=== PATIENT | female | born 1935 | race Caucasian/White ===

== ENCOUNTER 2018-04-03 05:35 | Emergency (ER) | payer OTHER, BC ==
[2018-04-03] MEDS ORDERED: FLUORESCEIN SODIUM 0.6 MG/WRAP ONE (06:28)
[2018-04-03] MEDS ORDERED: TETRACAINE HCL 0.5% 2ML OPTH ONE (06:28)
[2018-04-03 06:30] LABS: Urine RBC TNTC /HPF (NONE SEEN)
[2018-04-03 06:31] LABS: Urine Bacteria <20 /HPF (<20); Urine Culture Reflex Order NOT NEEDED
--- NOTE | 2018-04-03 07:12 | ER ---
Nurse's Notes [facility] Name: Africa Pope Age: 82 yrs Sex: Female : 1935 Arrival Date: 04/03/2018 Time: 05:37 Bed 24 Private MD: Roberto Zafar V Diagnosis: Urinary tract infection, site not specified-with hematuria;Conjunctival hemorrhage, left eye Presentation: 04/03 05:55 Presenting complaint: Patient states: states she had blood on urine that started when wh she woke up a couple of hours ago and a red eye that started yesterday. Denies fever, nausea,vomiting or pain. Transition of care: patient was not received from another setting of care. Onset of symptoms was April 03, 2018. Risk Assessment: Do you want to hurt yourself or someone else? Patient reports no desire to harm self or others. Initial Sepsis Screen: Does the patient meet any 2 criteria? No. Patient's initial sepsis screen is negative. Does the patient have a suspected source of infection? Yes: Dysuria/Frequency/Urgency/UTI. Care prior to arrival: None. 05:55 Method Of Arrival: Ambulatory 05:55 Acuity: LENORE 4 Triage Assessment: 06:02 General: Appears in no apparent distress. comfortable. Pain: Denies pain. 06:03 General: Behavior is calm, cooperative, appropriate for age. Historical: - Allergies: 06:01 Codeine; 06:01 Tetanus Vaccines \T\ Toxoid; - Home Meds: 06:01 Propranolol Oral [Active]; losartan oral oral [Active]; amlodipine oral [Active]; - PMHx: 06:01 Hypertension; - PSHx: 06:01 Hysterectomy; - Immunization history:: Adult Immunizations up to date. - Social history:: Smoking status: Patient/guardian denies using tobacco. - Ebola Screening: : Patient negative for fever greater than or equal to 101.5 degrees Fahrenheit, and additional compatible Ebola Virus Disease symptoms. Screenin:02 Abuse screen: Denies threats or abuse. Denies injuries from another. Nutritional screening: No deficits noted. Tuberculosis screening: No symptoms or risk factors identified. Fall Risk None identified. Assessment: 06:24 General: Appears in no apparent distress. comfortable, Behavior is calm, cooperative, appropriate for age. Pain: Denies pain. Neuro: Level of Consciousness is awake, alert, obeys commands, Oriented to person, place, time, situation. Cardiovascular: Denies chest pain, Capillary refill < 3 seconds. Respiratory: Airway is patent Respiratory effort is even, unlabored, Respiratory pattern is regular, symmetrical. GI: Abdomen is flat, non-distended, Abd is soft and non tender X 4 quads. : Urine is blood tinged, Reports hematuria that started this morning Denies pain. EENT: Eyes left eye reddened. Derm: Skin is intact, is healthy with good turgor, Skin is pink, warm \T\ dry. normal. Musculoskeletal: Range of motion: intact in all extremities. Vital Signs: 05:58 BP 166 / 56; Pulse 84; Resp 17; Temp 97.7; Pulse Ox 99% on R/A; ED Course: 05:37 Patient arrived in ED. es 05:37 Roberto Zafar MD is Private Physician. 05:54 Víctor Reyes is Primary Nurse. 05:58 Triage completed. 06:01 Magdaleno Cotton NP is PHCP. pm1 06:01 Ashish Nixon MD is Attending Physician. pm1 06:03 Arm band placed on right wrist. 06:03 Patient has correct armband on for positive identification. Bed in low position. Call light in reach. Side rails up X 1. Pulse ox on. NIBP on. Administered Medications: 06:33 Drug: Tetracaine Drops 0.5 % 1 drops {Note: Administered by Magdaleno Cotton NP.} Route: Ophthalmic; Site: left eye; 07:32 Drug: Rocephin (cefTRIAXone) 1 grams Route: IM; Site: right gluteus; ph Outcome: 07:11 Discharge ordered by . pm1 07:57 Patient left the ED. ph Addendum: 04/07/2018 16:26 Addendum: Culture Results: Positive urine culture. Phone call Attempt #1 Patient s s notified of urine culture report, reports that she feels fine other than her normal urgency. Signatures: Milagro Curiel Shelby, RN RN Priya Chung RN RN Magdaleno Cotton NP [employer] pm1 Víctor Reyes
--- NOTE | 2018-04-03 07:12 | EDPHYS ---
Physician Documentation [facility] Name: Africa Pope Age: 82 yrs Sex: Female : 1935 Arrival Date: 04/03/2018 Time: 05:37 Bed 24 Private MD: Roberto Zafar V ED Physician Ashish Nixon HPI: 04/03 06:32 This 82 yrs old Female presents to ER via Ambulatory with complaints of pm1 hematuria, and left eye problem. 06:32 The patient presents with urinary symptoms, burning with urination, frequency, small pm1 quantity. Onset: The symptoms/episode began/occurred 3 day(s) ago. Modifying factors: The symptoms are alleviated by nothing, the symptoms are aggravated by urinating. Associated signs and symptoms: Pertinent negatives: diarrhea, fever, nausea, vomiting, abdominal pain. flank pain. Severity of symptoms: in the emergency department the symptoms are actually worse. Patient with burning with urination, frequency, and small quantity of urine with frequency for the past 2-3 days. This morning she had blood in her urine. Patient without any abdominal pain, back pain, or fever. Patient reports left eye redness without pain, change in vision, foreign body sensation, matting or discharge. She rubbed her eye a few days ago and is uncertain if contributory . Historical: - Allergies: 06:01 Codeine; 06:01 Tetanus Vaccines \T\ Toxoid; - Home Meds: 06:01 Propranolol Oral [Active]; losartan oral oral [Active]; amlodipine oral [Active]; - PMHx: 06:01 Hypertension; - PSHx: 06:01 Hysterectomy; - Immunization history:: Adult Immunizations up to date. - Social history:: Smoking status: Patient/guardian denies using tobacco. - Ebola Screening: : Patient negative for fever greater than or equal to 101.5 degrees Fahrenheit, and additional compatible Ebola Virus Disease symptoms. ROS: 06:32 Positive for urinary symptoms, urinary frequency, burning with urination, Negative pm1 for flank pain. 06:32 Constitutional: Negative for fever, chills, and weight loss. 06:32 ENT: Negative for injury, pain, and discharge, Neck: Negative for injury, pain, and swelling, Cardiovascular: Negative for chest pain, palpitations, and edema, Respiratory: Negative for shortness of breath, cough, wheezing, and pleuritic chest pain, Abdomen/GI: Negative for abdominal pain, nausea, vomiting, diarrhea, and constipation, Back: Negative for injury and pain, MS/Extremity: Negative for injury and deformity, Skin: Negative for injury, rash, and discoloration. 06:32 Neuro: Negative for headache, weakness, numbness, tingling, and seizure. 06:32 Eyes: Positive for redness, of the left eye, Negative for discharge, itching, matting, pain, photophobia, swelling, tearing, vision loss, visual disturbance. Exam: 06:32 Constitutional: This is a well developed, well nourished patient who is awake, alert, pm1 and in no acute distress. Head/Face: Normocephalic, atraumatic. ENT: Nares patent. No nasal discharge, no septal abnormalities noted. Tympanic membranes are normal and external auditory canals are clear. Oropharynx with no redness, swelling, or masses, exudates, or evidence of obstruction, uvula midline. Mucous membranes moist. Neck: Trachea midline, no thyromegaly or masses palpated, and no cervical lymphadenopathy. Supple, full range of motion without nuchal rigidity, or vertebral point tenderness. No Meningismus. Chest/axilla: Normal chest wall appearance and motion. Nontender with no deformity. No lesions are appreciated. Cardiovascular: Regular rate and rhythm with a normal S1 and S2. No gallops, murmurs, or rubs. Normal PMI, no JVD. No pulse deficits. Respiratory: Lungs have equal breath sounds bilaterally, clear to auscultation and percussion. No rales, rhonchi or wheezes noted. No increased work of breathing, no retractions or nasal flaring. Abdomen/GI: Soft, non-tender, with normal bowel sounds. No distension or tympany. No guarding or rebound. No evidence of tenderness throughout. Back: No spinal tenderness. No costovertebral tenderness. Full range of motion. Skin: Warm, dry with normal turgor. Normal color with no rashes, no lesions, and no evidence of cellulitis. MS/ Extremity: Pulses equal, no cyanosis. Neurovascular intact. Full, normal range of motion. 06:32 Eyes: Periorbital structures: appear normal, no abrasion, no cellulitis, no contusion, no ecchymosis, no erythema, no laceration, no swelling, Pupils: no acute changes, normal size, normal reaction to light, Extraocular movements: intact throughout, Conjunctiva: subconjunctival hemorrhage(s), seen in the left eye, Corneas: abrasion, is not appreciated, on the left, foreign body, is not appreciated, a fluorescein strip employed to appreciate the findings, Sclera: no appreciated abnormality, Anterior chamber: no acute changes, Lids and lashes: appear normal, bilaterally. 06:32 Neuro: Orientation: is normal, Mentation: is normal, Motor: moves all fours. Vital Signs: 05:58 BP 166 / 56; Pulse 84; Resp 17; Temp 97.7; Pulse Ox 99% on R/A; wh MDM: 06:02 Patient medically screened. pm1 06:33 Data reviewed: vital signs. Data interpreted: Pulse oximetry: on room air is 99 %. pm1 Interpretation: normal. 07:08 Counseling: I had a detailed discussion with the patient and/or guardian regarding: the pm1 historical points, exam findings, and any diagnostic results supporting the discharge/admit diagnosis, lab results, the need for outpatient follow up, to return to the emergency department if symptoms worsen or persist or if there are any questions or concerns that arise at home. 04/03 06:13 Order name: Urine Microscopic Only; Complete Time: 07:04 pm1 04/03 06:21 Order name: Urine Dipstick--Ancillary (enter results) mt 04/03 06:13 Order name: Urine Dipstick-Ancillary (obtain specimen); Complete Time: 06:14 pm1 04/03 07:08 Order name: Urine Culture pm1 04/03 06:13 Order name: Visual Acuity; Complete Time: 06:22 pm1 04/03 06:13 Order name: Eye Tray; Complete Time: 06:22 pm1 04/03 06:13 Order name: Fluoresene Opth strip; Complete Time: 06:22 pm1 Administered Medications: 06:33 Drug: Tetracaine Drops 0.5 % 1 drops {Note: Administered by Magdaleno Cotton NP.} Route: wh Ophthalmic; Site: left eye; 07:32 Drug: Rocephin (cefTRIAXone) 1 grams Route: IM; Site: right gluteus; ph Disposition: 04/03/18 07:11 Discharged to Home. Impression: Urinary tract infection, site not specified - with hematuria, Conjunctival hemorrhage, left eye. - Condition is Stable. - Discharge Instructions: Hematuria, Adult, Subconjunctival Hemorrhage, Urinary Tract Infection, Adult. - Prescriptions for cefpodoxime 100 mg Oral Tablet - take 1 tablet by ORAL route every 12 hours for 7 days take with food; 14 tablet. - Medication Reconciliation Form, Thank You Letter, Antibiotic Education form. - Follow up: Emergency Department; When: As needed; Reason: Worsening of condition. Follow up: Private Physician; When: 2 - 3 days; Reason: Recheck today's complaints, Continuance of care, Re-evaluation by your physician. - Problem is new. - Symptoms have improved. Addendum: 04/05/2018 17:30 Co-signature as Attending Physician, Ashish Nixon MD. g s Signatures: Dispatcher [employer] EDMS Priya Chung RN RN ph Magdaleno Cotton, NURSE PRACTITIONER MANAGER NURSE PRACTITIONER MANAGER pm1 Víctor Reyes Gregory, MD MD Corrections: (The following items were deleted from the chart) 04/03 07:57 07:11 04/03/2018 07:11 Discharged to Home. Impression: Urinary tract infection, site ph not specified - with hematuria; Conjunctival hemorrhage, left eye. Condition is Stable. Forms are Medication Reconciliation Form, Thank You Letter, Antibiotic Education, Prescription Opioid Use. Follow up: Emergency Department; When: As needed; Reason: Worsening of condition. Follow up: Private Physician; When: 2 - 3 days; Reason: Recheck today's complaints, Continuance of care, Re-evaluation by your physician. Problem is new. Symptoms have improved. pm1
[2018-04-03] MEDS ORDERED: LIDOCAINE 1% MPF 2 ML AMPULE ONE (07:30)
[2018-04-03] MEDS ORDERED: CEFTRIAXONE 1000 MG/VIAL ONE (07:30)
[2018-04-03 08:01] VITALS: BP 166/56; TEMP 97.7; O2SAT 99
[2018-04-03 09:36] LABS: Urine Blood 3+ (NEG); Urine Glucose NEGATIVE (NEG); Urine Protein 3+ (NEG)
== END 2018-04-03 07:57 | disposition home or self-care (01) ==
LOC: ER 05:35
DX: N39.0 Urinary tract infection, site not specified (principal); H11.32 Conjunctival hemorrhage, left eye; I10 Essential (primary) hypertension; Z88.5 Allergy status to narcotic agent; Z88.7 Allergy status to serum and vaccine
CPT/HCPCS: 87077; 87086; 87088; 87186; 96372; 99283; J2001; 81003; 81015